=== PATIENT | male | born 1950 | race Caucasian/White ===

== ENCOUNTER → 2017-03-10 | Outpatient (CLI) | payer OTHER | END | disposition home or self-care (01) | LOC: US 08:25 | DX: I12.9 Hypertensive chronic kidney disease with stage 1 through stage 4 chronic kidney disease, or unspecified chronic kidney disease (principal); N18.3 Chronic kidney disease, stage 3 (moderate); N40.0 Benign prostatic hyperplasia without lower urinary tract symptoms; N28.89 Other specified disorders of kidney and ureter; I70.1 Atherosclerosis of renal artery; N28.1 Cyst of kidney, acquired ==

== ENCOUNTER 2017-10-30 11:39 | Emergency (ER) | payer OTHER ==
[~2017-10-30] VITALS: Wt 81.6 kg
== END 2017-10-30 11:51 | disposition expired ==
LOC: ED 11:39
DX: I46.9 Cardiac arrest, cause unspecified (principal); Z91.040 Latex allergy status